=== PATIENT | female | born 1965 | race Caucasian/White ===

== ENCOUNTER 2017-08-02 17:08 | Inpatient (IN) | payer OTHER ==
[~2017-08-02] VITALS: Ht 165.1 cm; Wt 70.2 kg
[~2017-08-02 17:08] MED LIST: ADULT LOW DOSE81 MG PO; BUPROPION XL150 MG PO; FOLIC ACID 1 MG1 MG PO; ISONIAZID300 MG PO; LASIX40 MG PO; LIPITOR TAB 2020 MG PO; METOPROLOL TART25 MG PO; NORVASC 5 MG TAB5 MG PO; PAXIL40 MG PO; PROTONIX 20 MG20 MG PO; REQUIP2 MG PO; TRAZODONE HCL150 MG PO; VITAMIN B-650 M1 PO
[2017-08-02 17:56] LABS: HEMOGLOBIN 13.2 gm/dl (12.3-15.3); RED BLOOD COUNT 4.56 M/UL (4.00-5.10); WHITE BLOOD COUNT 6.6 K/UL (4.5-11.0)
[2017-08-02 18:26] LABS: BUN/CREATININE RATIO 18 (0-10)
[2017-08-03 04:59] LABS: HEMOGLOBIN 12.6 gm/dl (12.3-15.3); RED BLOOD COUNT 4.3 M/UL (4.00-5.10)
[2017-08-03 05:07] LABS: WHITE BLOOD COUNT 4.9 K/UL (4.5-11.0)
[2017-08-03 05:36] LABS: BUN/CREATININE RATIO 16 (0-10)
== END 2017-08-03 22:00 | disposition other institution (70) | DRG 286 ==
LOC: ER1 17:08 → MED SURG 4 20:15 → ZEROF 20:15 → MED SURG 4 23:56
PROVIDERS: Emergency Medicine; ADMIT Hospitalist
PROC: B217YZZ Fluoroscopy of Right Internal Mammary Bypass Graft using Other Contrast (ICD-10-PCS; principal; 2017-08-03)
PROC: 4A023N7 Measurement of Cardiac Sampling and Pressure, Left Heart, Percutaneous Approach (ICD-10-PCS; 2017-08-03)
DX: I25.10 Atherosclerotic heart disease of native coronary artery without angina pectoris (principal); I50.33 Acute on chronic diastolic (congestive) heart failure; Z95.1 Presence of aortocoronary bypass graft; I05.2 Rheumatic mitral stenosis with insufficiency; E78.5 Hyperlipidemia, unspecified; Z88.0 Allergy status to penicillin; Z79.82 Long term (current) use of aspirin; Z79.899 Other long term (current) drug therapy; Z87.891 Personal history of nicotine dependence; Z82.49 Family history of ischemic heart disease and other diseases of the circulatory system; Z83.3 Family history of diabetes mellitus; Z84.89 Family history of other specified conditions; I27.2 Other secondary pulmonary hypertension; Z20.1 Contact with and (suspected) exposure to tuberculosis; F41.9 Anxiety disorder, unspecified; F32.9 Major depressive disorder, single episode, unspecified; G47.00 Insomnia, unspecified; K21.9 Gastro-esophageal reflux disease without esophagitis; I11.0 Hypertensive heart disease with heart failure
CPT/HCPCS: 36200; 36415; 71010; 71020; 71035; 75710; 80053; 80061; 82550; 82553; 83874; 83880; 84439; 84443; 84481; 84484; 85025; 85027; 93005; 94060; 94729; 96374; 99285; C1769; C1887; C9113; J1644; J1940; J1956; J2250; J2405; J3010; J7040; Q9963

== ENCOUNTER 2021-03-15 07:37 | Emergency (ER) | payer OTHER ==
[~2021-03-15 07:37] MED LIST changes: +BACLOFEN20 MG PO; +FUROSEMIDE20 MG PO; +POTASSIUM CHLO10 MEQ PO; -REQUIP2 MG PO; +REQUIP3 MG PO; +ROPINIROLE HCL2 MG PO; +WARFARIN SODIUM4 MG PO
[2021-03-15 08:24] LABS: RED BLOOD COUNT 2.51 M/UL (4.00-5.10); WHITE BLOOD COUNT 6.4 K/UL (4.5-11.0)
[2021-03-15 08:32] LABS: HEMOGLOBIN 5.9 gm/dl (12.3-15.3)
[2021-03-15 08:57] LABS: BUN/CREATININE RATIO 15 (0-10)
== END 2021-03-15 12:00 | disposition home or self-care (01) ==
LOC: ER1 07:37
PROVIDERS: Emergency Medicine
DX: N28.89 Other specified disorders of kidney and ureter (principal); Z88.0 Allergy status to penicillin; Z20.822 Contact with and (suspected) exposure to COVID-19; Z95.1 Presence of aortocoronary bypass graft; F17.200 Nicotine dependence, unspecified, uncomplicated
CPT/HCPCS: 0240U; 36430; 71045; 80053; 82272; 82550; 82553; 83605; 83690; 84484; 85025; 85610; 85730; 86850; 86900; 86901; 86920; 86927; 93005; 96374; 96375; 99283; 99284; J2270; J2405; J7030; J7050; P9016; P9017; Q9967